=== PATIENT | female | born 1965 | race Caucasian/White ===

== ENCOUNTER 2016-10-29 16:36 | Emergency (ER) | payer OTHER ==
[~2016-10-29] VITALS: Ht 162.6 cm; Wt 85.7 kg
[~2016-10-29 16:36] MED LIST: GARL1TAB11 PO; NUTRTAB40 PO; OMEG12006 PO; ONDA4TAB10 SL; OXYC1TAB3 PO; OXYC7.5T65 PO; PANT40TA PO; SERT50TA PO
[2016-10-29 16:41] VITALS: Ht 162.6 cm; Wt 85.7 kg
[2016-10-29] MEDS ORDERED: SODIUM CHLORIDE 0.9% 1000ML 1,000 ML IV STA (17:21)
[2016-10-29] MEDS ORDERED: ONDANSETRON INJ 2 MG/ML 2 ML VIAL IV STA (17:21)
--- NOTE | 2016-10-29 17:29 | EMERGENCY ROOM VISIT NOTE ---
History Report prepared by Fredy: Abrahan Jeffrey Under the Supervision of: Dr. Keegan Yao D.O. First contact with patient: 17:17 Chief Complaint: KIDNEY STONE Stated Complaint: KIDNEY STONE History of Present Illness The patient is a 51 year old female who presents to the Emergency Room with complaints of persistent left flank pain that started today prior to arrival. She says she has a 5 mm kidney stone. The patient had a lithotripsy in May, and saw Dr. Mendez (urology) in July, and he said the kidney stone was 3 mm. He also told the patient that the kidney stone was in the bottom of the kidney. The patient started having symptoms again on the 17 of October, but then the symptoms ceased until today. Her symptoms include the burning left flank pain as well as hematuria, a watering mouth, a persistent urge to urinate, and burning urination. She denies any fevers or vomiting. The patient has a history of surgery for a urethral cyst. She does not use tobacco products and does not drink alcohol. Source of History: patient Onset: Today prior to arrival Position: back (left flank - pain) Quality: burning Timing: other (persistent) Associated Symptoms: + urinary symptoms (hematuria, persistent urge, burning urination), No fevers, No vomiting Note: Associated symptoms: A watering mouth. Review of Systems See HPI for pertinent positives & negatives. A total of 10 systems reviewed and were otherwise negative. Past Medical & Surgical Medical Problems: (1) Kidney stones Surgical Problems: (1) H/O lithotripsy Family History FHx: diverticulitis Social History Smoking Status: Never Smoker Alcohol Use: none Marital Status: Housing Status: lives with family Occupation Status: employed Current/Historical Medications Scheduled Duloxetine Hcl (Cymbalta), 60 MG PO DAILY Pantoprazole (Protonix), 20 MG PO DAILY Scheduled PRN Clonazepam (Klonopin), 0.5 MG PO BID PRN for Anxiety Oxycodone Immediate Rel Tab (Roxicodone Ir), 1-2 TAB PO Q4H PRN for Severe Pain Allergies Coded Allergies: Clarithromycin (Verified Adverse Reaction, Mild, diarrhea, 08/21/16) Solifenacin (Verified Adverse Reaction, Unknown, SEVERE BACK PAIN, 05/31/16) Physical Exam Vital Signs Date Time Temp Pulse Resp B/P Pulse Ox O2 Delivery O2 Flow Rate FiO2 10/29/16 18:13 66 20 121/83 99 Room Air 10/29/16 18:12 67 10/29/16 16:41 37.0 83 19 140/87 96 Room Air Physical Exam GENERAL: Patient is awake, alert, very anxious and uncomfortable appearing. EYES: The conjunctivae are clear. The pupils are round and reactive. EARS, NOSE, MOUTH AND THROAT: The nose is without any evidence of any deformity. Mucous membranes are moist tongue is midline NECK: The neck is nontender and supple. RESPIRATORY: Normal respiratory effort is noted there is no evidence of wheezing rhonchi or rales CARDIOVASCULAR: Regular rate and rhythm noted there no murmurs rubs or gallops normal S1 normal S2 GASTROINTESTINAL: The abdomen is soft. Bowel sounds are present in all quadrants. Abdomen is nontender BACK: No midline tenderness appreciated. Significant left flank tenderness noted to palpation. MUSCULOSKELETAL/EXTREMITIES: There is no evidence of gross deformity full range of motion is noted in the hips and shoulders SKIN: There is no obvious evidence of any rash. There are no petechiae, pallor or cyanosis noted. NEUROLOGIC: Patient is awake alert and oriented x3 strength is symmetric patellar reflexes are 2+ bilaterally Medical Decision & Procedures ER Provider Diagnostic Interpretation: X ray results and stated below per my interpretation and radiology interpretation. Other radiology results per my review and radiologist interpretation: RENAL ULTRASOUND CLINICAL HISTORY: left flank pain COMPARISON STUDY: Abdomen and pelvis CT 06/20/2016. FINDINGS: The right kidney measures 11.3 cm and the left kidney measures 12.1 cm. No definite stones identified. There is a 1.2 cm cyst within the lower pole the right kidney. No hydronephrosis. The bladder is unremarkable. Bilateral ureteral jets are identified. IMPRESSION: 1. No definite renal stones identified. 2. No hydronephrosis. Electronically signed by: Sukhwinder Montemayor M.D. 10/29/2016 7:16 PM KUB HISTORY: Generalized abdominal pain. COMPARISON: KUB 08/21/2016. FINDINGS: The bowel gas pattern is unremarkable. There are no dilated loops of small bowel to suggest an obstruction. No renal calculi. No ureteral calculi. Calcifications in the deep pelvis likely represent phleboliths. These remain unchanged. No pneumoperitoneum or pneumatosis. IMPRESSION: No renal or ureteral stones. Electronically signed by: Sukhwinder Montemayor M.D. 10/29/2016 7:17 PM Laboratory Results 10/29/16 17:35 Red Blood Count 4.94, Mean Corpuscular Volume 86.6, Mean Corpuscular Hemoglobin 30.4, Mean Corpuscular Hemoglobin Concent 35.0, Mean Platelet Volume 9.2, Neutrophils (%) (Auto) 51.5, Lymphocytes (%) (Auto) 40.0, Monocytes (%) (Auto) 7.2, Eosinophils (%) (Auto) 0.8, Basophils (%) (Auto) 0.4, Neutrophils # (Auto) 3.78, Lymphocytes # (Auto) 2.94, Monocytes # (Auto) 0.53, Eosinophils # (Auto) 0.06, Basophils # (Auto) 0.03 10/29/16 17:35 Test 10/29/16 17:35 10/29/16 18:14 White Blood Count 7.35 K/uL (4.8-10.8) Red Blood Count 4.94 M/uL (4.2-5.4) Hemoglobin 15.0 g/dL (12.0-16.0) Hematocrit 42.8 % (37-47) Mean Corpuscular Volume 86.6 fL (80-100) Mean Corpuscular Hemoglobin 30.4 pg (25-34) Mean Corpuscular Hemoglobin Concent 35.0 g/dl (32-36) Platelet Count 371 K/uL (130-400) Mean Platelet Volume 9.2 fL (7.4-10.4) Neutrophils (%) (Auto) 51.5 % Lymphocytes (%) (Auto) 40.0 % Monocytes (%) (Auto) 7.2 % Eosinophils (%) (Auto) 0.8 % Basophils (%) (Auto) 0.4 % Neutrophils # (Auto) 3.78 K/uL (1.4-6.5) Lymphocytes # (Auto) 2.94 K/uL (1.2-3.4) Monocytes # (Auto) 0.53 K/uL (0.11-0.59) Eosinophils # (Auto) 0.06 K/uL (0-0.5) Basophils # (Auto) 0.03 K/uL (0-0.2) RDW Standard Deviation 44.1 fL (36.4-46.3) RDW Coefficient of Variation 14.0 % (11.5-14.5) Immature Granulocyte % (Auto) 0.1 % Immature Granulocyte # (Auto) 0.01 K/uL (0.00-0.02) Anion Gap 11.0 mmol/L (3-11) Est Creatinine Clear Calc Drug Dose 75.0 ml/min Estimated GFR () 81.9 Estimated GFR (Non- 70.7 BUN/Creatinine Ratio 14.8 (10-20) Calcium Level 9.9 mg/dl (8.5-10.1) Total Bilirubin 0.7 mg/dl (0.2-1) Direct Bilirubin 0.1 mg/dl (0-0.2) Aspartate Amino Transf (AST/SGOT) 18 U/L (15-37) Alanine Aminotransferase (ALT/SGPT) 34 U/L (12-78) Alkaline Phosphatase 65 U/L (45-117) Total Protein 8.2 gm/dl (6.4-8.2) Albumin 4.5 gm/dl (3.4-5.0) Lipase 199 U/L (73-393) Urine Color YELLOW Urine Appearance CLEAR (CLEAR) Urine pH 5.5 (4.5-7.5) Urine Specific [place] 1.016 (1.000-1.030) Urine Protein NEG (NEG) Urine Glucose (UA) NEG (NEG) Urine Ketones NEG (NEG) Urine Occult Blood NEG (NEG) Urine Nitrite NEG (NEG) Urine Bilirubin NEG (NEG) Urine Urobilinogen NEG (NEG) Urine Leukocyte Esterase NEG (NEG) Laboratory results per my review. Medications Administered Medications (Trade) Dose Ordered Sig/Felicia Route Start Time Stop Time Status Last Admin Dose Admin Sodium Chloride (Nss 1000ml) 1,000 ml @ 999 mls/hr Q1H1M STAT IV 10/29/16 17:21 10/29/16 18:21 DC 10/29/16 17:21 999 MLS/HR Morphine Sulfate (MoRPHine SULFATE INJ) 4 mg Q15M PRN IV 10/29/16 17:30 11/12/16 17:29 10/29/16 18:11 4 MG Ondansetron HCl (Zofran Inj) 4 mg NOW STAT IV 10/29/16 17:21 10/29/16 17:23 DC 10/29/16 18:10 4 MG Ketorolac Tromethamine (Toradol Inj) 30 mg STK-MED ONCE .ROUTE 10/29/16 19:04 10/29/16 19:05 DC 10/29/16 19:07 30 MG ED Course 1719: The patient was evaluated in room A11B. A complete history and physical examination were performed. 172: Ordered Zofran Inj 4 mg IV, NSS 1000 ml @ 999 mls/hr iV. 1730: Ordered Morphine Sulfate Inj 4 mg IV PRN. 190: Ordered Toradol Inj 30 mg IV. 8: I reevaluated the patient and she is feeling much better. The patient verbally expressed agreement and understanding of the treatment plan. The patient will be discharged. Medical Decision Differential diagnosis: Etiologies such as renal colic, appendicitis, diverticulitis, mesenteric ischemia, aortic pathology, infections, inflammatory bowel disease, PUD, biliary pathology, UTI, as well as others were entertained. Nursing notes reviewed. Patient's previous electronic medical records were also reviewed. The patient is a 51-year-old female who presented to the emergency department for evaluation of left flank pain. The patient states that she's been having worsening left flank pain as well as hematuria recently. She has a history of renal colic and has a known 3 millimeter renal calculus. The patient had a history physical exam consistent with renal colic. She was treated with IV fluids IV pain medicine and IV antiemetics. On subsequent reevaluation she was feeling much better. Her urinalysis dipped in the emergency department for trace blood but her urinalysis and the lab did not show any hematuria. The patient states that she's had intermittent hematuria. The patient's ultrasound did not show signs of definite ureteral calculus or hydronephrosis. The patient' s laboratory studies otherwise were unremarkable. I discussed the patient's laboratory and radiographic studies with her. At this time I do feel her condition is likely consistent with a recently passed kidney stone. The patient did not have significant abdominal tenderness on physical exam. She had no radiation of the pain to her chest. She had no complaints of shortness of breath. She was encouraged to rest and avoid any strenuous activity. She was encouraged to continue all medications as prescribed. She was also encouraged to follow-up with her primary care physician this week for reevaluation or return to the emergency department if symptoms change worsen or if the need arises. Impression Primary Impression: Left flank pain Additional Impression: Suspected kidney stone Scribe Attestation The scribe's documentation has been prepared under my direction and personally reviewed by me in its entirety. I confirm that the note above accurately reflects all work, treatment, procedures, and medical decision making performed by me. Departure Information Dispostion Home / Self-Care Prescriptions Oxycodone Immediate Rel Tab (ROXICODONE IR) 5 Mg Tab 1-2 TAB PO Q4H Y for Severe Pain, #24 TAB Prov: Keegan Yao, DO 10/29/16 Referrals Delmer Ge D.O. (PCP) Forms HOME CARE DOCUMENTATION FORM, IMPORTANT VISIT INFORMATION Patient Instructions A Signature Page, Kidney Stones, My [facility] Additional Instructions Drink plenty of clear liquids. Continue all medications as prescribed. Continue using Motrin and Tylenol as directed for mild pain. Return to the emergency department if symptoms worsen or if need arises. Otherwise follow-up with your family for reevaluation this week.
[2016-10-29] MEDS ORDERED: PRT/20 PO (17:50)
[2016-10-29] MEDS ORDERED: DULO60CA44 PO (17:51)
[2016-10-29 17:52] LABS: BASO % 0.4 %; BASO ABS # 0.03 K/uL (0-0.2); COMPLETE YES; EOS % 0.8 %; HEMATOCRIT 42.8 % (37-47); IG% 0.1 %; LYMPH ABS # 2.94 K/uL (1.2-3.4); MEAN CELL VOLUME 86.6 fL (80-100); MEAN CORPUSCULAR HEMOGLOBIN 30.4 pg (25-34); MEAN PLATELET VOLUME 9.2 fL (7.4-10.4); MONO % 7.2 %; NEUT % 51.5 %; PLATELET COUNT 371 K/uL (130-400); RED BLOOD COUNT 4.94 M/uL (4.2-5.4); WHITE BLOOD COUNT 7.35 K/uL (4.8-10.8)
[2016-10-29] MEDS ORDERED: CLON0.5T3 PO (17:52)
[2016-10-29] MEDS: MoRPHine SULFATE 4 MG/ML 1 ML CARP\\VIAL IV PRN ×2 (18:11→20:31)
[2016-10-29 18:13] LABS: BUN/CREATININE RATIO 14.8 (10-20); CALCIUM 9.9 mg/dl (8.5-10.1); CREATININE 0.93 mg/dl (0.60-1.20); POTASSIUM 3.8 mmol/L (3.5-5.1)
[2016-10-29 18:55] LABS: URINE APPEARANCE CLEAR (CLEAR); URINE BILIRUBIN NEG (NEG); URINE COLOR YELLOW; URINE NITRITE NEG (NEG); URINE PH 5.5 (4.5-7.5); URINE SPECIFIC GRAVITY 1.016 (1.000-1.030); UROBILINOGEN NEG (NEG)
[2016-10-29 19:04] LABS: MANUAL MICROSCOPIC REQUIRED? NO; REVIEW REQ? NO
[2016-10-29] MEDS ORDERED: KETOROLAC TROMETHAMINE 30 MG/ML VIAL ONE (19:04)
[2016-10-29] MEDS ORDERED: KETOROLAC TROMETHAMINE 30 MG/ML VIAL IV STA (19:05)
--- NOTE | 2016-10-29 19:18 | DIAGNOSTIC IMAGING REPORT ---
RENAL ULTRASOUND CLINICAL HISTORY: left flank pain COMPARISON STUDY: Abdomen and pelvis CT 06/20/2016. FINDINGS: The right kidney measures 11.3 cm and the left kidney measures 12.1 cm. No definite stones identified. There is a 1.2 cm cyst within the lower pole the right kidney. No hydronephrosis. The bladder is unremarkable. Bilateral ureteral jets are identified. IMPRESSION: 1. No definite renal stones identified. 2. No hydronephrosis. Electronically signed by: uSkhwinder Montemayor M.D. 10/29/2016 7:16 PM
--- NOTE | 2016-10-29 19:19 | DIAGNOSTIC IMAGING REPORT ---
KUB HISTORY: Generalized abdominal pain. COMPARISON: KUB 08/21/2016. FINDINGS: The bowel gas pattern is unremarkable. There are no dilated loops of small bowel to suggest an obstruction. No renal calculi. No ureteral calculi. Calcifications in the deep pelvis likely represent phleboliths. These remain unchanged. No pneumoperitoneum or pneumatosis. IMPRESSION: No renal or ureteral stones. Electronically signed by: Sukhwinder Montemayor M.D. 10/29/2016 7:17 PM
[2016-10-29] MEDS ORDERED: OXYC1TAB3 PO (19:51)
[2016-10-29] MEDS ORDERED: OXYCODONE IR HOME PACK PO ONE (20:00)
[2016-10-29] MEDS ORDERED: ONDANSETRON HOME PACK 4MG OD TAB PO ONE (20:00)
[2016-10-29 20:49] VITALS: BP 124/56; PULSE 77; TEMP 37; O2SAT 93
[2017-07-24] MEDS ORDERED: CHOL1000 PO (08:36)
[2017-07-24] MEDS ORDERED: CYAN10005 PO (08:36)
[2017-07-24] MEDS ORDERED: BLAC1TAB PO (08:36)
[2017-07-24] MEDS ORDERED: MULT-506 PO (08:36)
[2017-07-25] MEDS ORDERED: HYDR-5688 PO (13:08)
== END 2016-10-29 20:50 | disposition home or self-care (01) ==
LOC: C.EDB 16:37 → C.EDA 20:50
DX: R10.9 Unspecified abdominal pain (principal)

== ENCOUNTER → 2017-06-10 | Outpatient (CLI) | payer OTHER ==
[~2017-06-10] MED LIST changes: +BLAC1TAB PO; +CHOL1000 PO; +CLON0.5T3 PO; +CYAN10005 PO; +DULO60CA44 PO; -GARL1TAB11 PO; +HYDR-5688 PO; +MULT-506 PO; -NUTRTAB40 PO; -OMEG12006 PO; -ONDA4TAB10 SL; -OXYC1TAB3 PO; -OXYC7.5T65 PO; -PANT40TA PO; +PRT/20 PO; -SERT50TA PO
--- NOTE | 2017-06-10 10:08 | DIAGNOSTIC IMAGING REPORT ---
KUB CLINICAL HISTORY: 52 years-old Female presenting with left ureteral calculus. TECHNIQUE: Single supine view of the abdomen was obtained. COMPARISON: 10/29/[address] from 06/20/2016.. FINDINGS: Previously noted left renal calculi on CT from 2016 are not readily apparent, possibly secondary to moderate stool burden throughout the colon, which somewhat degrades evaluation. No calculus along the course of the ureters. Left pelvic phleboliths noted. No evidence of free intraperitoneal gas, pneumatosis, or portal venous gas. Osseous structures normal. IMPRESSION: 1. No radiographic evidence of renal or ureteral calculi. Previously noted left renal calculi on CT from 2016 are not readily apparent. If there is continuing clinical concern noncontrast CT would better demonstrate nephrolithiasis. Electronically signed by: Jamari Velazquez M.D. 06/10/2017 10:07 AM Dictated Date/Time: 06/10/2017 10:04 AM
== END | disposition home or self-care (01) ==
LOC: C.RAD 09:43
PROVIDERS: ATTEND Urology
DX: N20.1 Calculus of ureter (principal)

== ENCOUNTER → 2017-07-21 | Outpatient (CLI) | payer OTHER | END | disposition home or self-care (01) | LOC: C.LABSPEC 10:31 | PROVIDERS: ATTEND Urology | DX: R31.0 Gross hematuria (principal); R10.9 Unspecified abdominal pain; N39.0 Urinary tract infection, site not specified; N20.1 Calculus of ureter ==

== ENCOUNTER → 2017-07-24 | Outpatient (CLI) | payer OTHER ==
--- NOTE | 2017-07-24 11:51 | DIAGNOSTIC IMAGING REPORT ---
CHEST 2 VIEWS ROUTINE CLINICAL HISTORY: N20.1 Left ureteral [id number] PREOPERATIVE CHEST COMPARISON STUDY: No previous studies for comparison. FINDINGS: The cardiac and mediastinal contours are normal. There is no evidence of focal pulmonary consolidation. There is no evidence of failure. No pleural effusions are visualized.[ There are minor atelectatic changes within the right middle lobe. IMPRESSION: No active disease in the chest. Electronically signed by: Harry Reis M.D. 07/24/2017 11:50 AM Dictated Date/Time: 07/24/2017 11:50 AM
--- NOTE | 2017-07-24 11:59 | DIAGNOSTIC IMAGING REPORT ---
KUB CLINICAL HISTORY: 52 years-old Female presenting with N20.1 Left ureteral [id number]. TECHNIQUE: Single supine view of the abdomen was obtained. COMPARISON: 06/10/[address] from 06/20/2016. FINDINGS: Previous seen noted punctate calculus at the lower pole of the left kidney is more prominent on the current exam in comparison to prior CT from 2016, suggesting growth. No calcification along the courses of the ureters. Left pelvic phleboliths noted. A calcific density projects along the course of the left ureter at the level of L3-4. On most recent radiograph from 06/10/2017, this was superimposed with the L3 transverse process. The positioning is not significantly changed since the IVP from 08/21/2016 and is consistent with a calcified omental nodule, likely old fat necrosis. Moderate stool burden, which mildly degrades evaluation. No gross pneumoperitoneum. Osseous structures normal. IMPRESSION: 1. Left renal calculus at the lower pole, which may be slowly increasing in size. No new renal stone allowing for the presence of gas and stool. Electronically signed by: Jamari Velazquez M.D. 07/24/2017 11:58 AM Dictated Date/Time: 07/24/2017 11:53 AM
== END | disposition home or self-care (01) ==
LOC: C.RAD 11:18
PROVIDERS: ATTEND Urology
DX: N20.1 Calculus of ureter (principal); N20.0 Calculus of kidney

== ENCOUNTER → 2017-07-25 | Day surgery (SDC) | payer OTHER ==
[2017-07-24 08:36] VITALS: Ht 162.6 cm; Wt 81.8 kg
[~2017-07-25] VITALS: Ht 162.6 cm; Wt 81.8 kg
[~2017-07-25] MED LIST changes: +ATROPINE SULFATE 0.1 MG/ML 5ML SYR IV PRN; +DEXAMETHASONE SOD INJ 4 MG/ML VIAL ONE; +EpHEDrine SULFATE INJ 50 MG/ML AMP IV PRN; +FENTANYL CITRATE INJ 50 MCG/1 ML 2 ML VIAL IV PRN; +FENTANYL CITRATE INJ 50 MCG/1 ML 2 ML VIAL ONE; +LACTATED RINGER'S 1000ML 1,000 ML IV SCH; +LIDOCAINE 2% 20 MG/ML 5ML SYR ONE; +OXYCODONE/ACETAMINOPHEN 5-325 TAB PO PRN; +PROPOFOL IV EMULSION 10 MG/ML 20 ML VIAL IV ONE; +SCOPOLAMINE 1.5 MG TDSY TD ONE; +SODIUM CHLORIDE 0.9% 1000ML 1,000 ML IV SCH
[2017-07-25] MEDS: CIPROFLOXACIN 400MG / D5W IV SCH ×2 (10:36→12:19)
--- NOTE | 2017-07-25 13:03 | History & Physical Bridge Note ---
H&P Re-Evaluation Bridge Note: I have examined the patient, reviewed the History & Physical and in the interval since the performance of the History & Physical I have noted the following changes of clinical significance: No changes noted
--- NOTE | 2017-07-25 13:12 | Discharge Instructions-SurgCtr ---
Discharge Instructions Date of Service Jul 25, 2017. Visit Reason for Visit: Stones Discharge Discharge Diagnosis / Problem: stones Discharge Goals Goal(s): Decrease discomfort, Improve disease control, Prevent Disease Progression Medications Stopped Medications Name(s): All meds taken at night time. Activity Recommendations Activity Limitations: resume your previous activity Lifting Limitations: none Exercise/Sports Limitations: none May Resume Sexual Activity: when tolerated Shower/Bathe: no limitations Driving or Machine Use: resume 1 day after discharge Anesthesia . Post Anesthesia Instructions: If you have had General Anesthesia or IV Sedation: * Do not drive today. * Resume driving when surgeon permits. * Do not make important decisions or sign legal documents today. * Call surgeon for: 1. Temperature elevations greater than 101 degrees F. 2. Uncontrollable pain. 3. Excessive bleeding. 4. Persistent nausea and vomiting. 5. Medication intolerance (nausea, vomiting or rash). * For nausea and vomiting use only clear liquids such as: tea, soda, bouillon until nausea subsides, then gradually increase diet as tolerated. * If you have any concerns or questions, call your surgeon's office. If physician is unavailable and it is an emergency, call 911 or go to the nearest emergency room. . Instructions / Follow-Up Instructions / Follow-Up Please keep your previously scheduled follow up appointment. Diet Recommendations Home Diet: no limitations, resume previous diet Pending Studies Studies pending at discharge: no Medical Emergencies . Who to Call and When: Medical Emergencies: If at any time you feel your situation is an emergency, please call 911 immediately. . Non-Emergent Contact Non-Emergency issues call your: Urologist Call Non-Emergent contact if: you have a fever, temperature is above 101.5, your pain is not controlled, your pain is worsening . . "Provider Documentation" section prepared by Lior Kumar. . [place] Drug Monitoring Program Search Results: patient reviewed within database, no issues identified
--- NOTE | 2017-07-25 13:42 | [facility] Operative Report ---
Operative Report Operative Date Jul 25, 2017. Pre-Operative Diagnosis Left Renal Stone Post-Operative Diagnosis Same as pre-op Procedure(s) Performed Left ESWL Surgeon Leena Estimated Blood Loss 0 mL Findings L renal stone Specimens None Drains none Anesthesia gen Complication(s) None Disposition Recovery Room / PACU (stable) Indications symptomatic left renal stone Description of Procedure Tiara Machado was identified in the preoperative holding area, appropriate informed consent was reviewed and completed and the patient was transported to the operating suite. Upon arrival appropriate preoperative antibiotics were administered and general anesthesia induced. The patient was placed in supine position and the stone was localized under fluoroscopy. A total of 2500 shocks were delivered to the stone. There appeared to be good fragmentation of the stone. Details of this procedure can be found on the [place] [facility] information sheet. At the conclusion of the case the patient was extubated and taken to the PACU in stable condition. There were no complications. I attest to the content of the Intraoperative Record and any orders documented therein. Any exceptions are noted below.
--- NOTE | 2017-07-25 14:11 | Anesthesia Progress Nt - [facility] ---
Anesthesia Post Op Note Date & Time Jul 25, 2017 at 14:11 Vital Signs Pain Intensity: 0 Vital Signs Past 12 Hours Date Time Temp Pulse Resp B/P (MAP) Pulse Ox O2 Delivery O2 Flow Rate FiO2 07/25/17 13:51 132/87 07/25/17 13:50 70 13 96 07/25/17 13:50 70 13 07/25/17 13:48 137/91 07/25/17 13:46 36.4 77 16 134/91 94 Mask 6 07/25/17 13:46 132/98 07/25/17 13:45 72 07/25/17 13:45 72 87 07/25/17 09:42 36.7 57 18 117/82 (94) 97 Room Air Notes Mental Status: alert / awake / arousable, participated in evaluation Pt Amnestic to Procedure: Yes Nausea / Vomiting: adequately controlled Pain: adequately controlled Airway Patency, RR, SpO2: stable & adequate BP & HR: stable & adequate Hydration State: stable & adequate Anesthetic Complications: no major complications apparent
[2017-07-25 14:42] VITALS: TEMP 36.8
[2017-07-25 14:57] VITALS: BP 125/85; PULSE 77; O2SAT 95
== END | disposition home or self-care (01) ==
LOC: X.SURG 09:16
PROVIDERS: ATTEND Urology
DX: N20.0 Calculus of kidney (principal); R31.0 Gross hematuria; R10.9 Unspecified abdominal pain; N20.1 Calculus of ureter; Z98.890 Other specified postprocedural states; Z90.89 Acquired absence of other organs; F41.9 Anxiety disorder, unspecified; G47.33 Obstructive sleep apnea (adult) (pediatric); Z68.31 Body mass index [BMI] 31.0-31.9, adult; Z88.2 Allergy status to sulfonamides; Z82.49 Family history of ischemic heart disease and other diseases of the circulatory system; Z83.3 Family history of diabetes mellitus

== ENCOUNTER → 2017-08-06 | Outpatient (CLI) | payer OTHER ==
[~2017-08-06] MED LIST changes: -ATROPINE SULFATE 0.1 MG/ML 5ML SYR IV PRN; -DEXAMETHASONE SOD INJ 4 MG/ML VIAL ONE; -EpHEDrine SULFATE INJ 50 MG/ML AMP IV PRN; -FENTANYL CITRATE INJ 50 MCG/1 ML 2 ML VIAL IV PRN; -FENTANYL CITRATE INJ 50 MCG/1 ML 2 ML VIAL ONE; -LACTATED RINGER'S 1000ML 1,000 ML IV SCH; -LIDOCAINE 2% 20 MG/ML 5ML SYR ONE; -OXYCODONE/ACETAMINOPHEN 5-325 TAB PO PRN; -PROPOFOL IV EMULSION 10 MG/ML 20 ML VIAL IV ONE; -SCOPOLAMINE 1.5 MG TDSY TD ONE; -SODIUM CHLORIDE 0.9% 1000ML 1,000 ML IV SCH
== END | disposition home or self-care (01) ==
LOC: C.LABSPEC 17:28
PROVIDERS: ATTEND Urology
DX: N20.1 Calculus of ureter (principal)